=== PATIENT | male | born 1950 | race Hispanic/Latino ===

== ENCOUNTER → 2024-09-02 | Outpatient (CLI) | payer MEDICARE, OTHER ==
[2024-09-02 12:11] LABS: ALBUMIN 3.7 g/dL (3.5-5.0); BILIRUBIN,TOTAL 0.2 mg/dL (0.2-1.0); CREATININE 0.7 mg/dL (0.5-1.3); POTASSIUM 4.3 mmol/L (3.5-5.1); TOTAL PROTEIN, SERUM 7.3 g/dL (6.0-8.3)
== END | disposition home or self-care (01) ==
LOC: LAB 09:05
PROVIDERS: ATTEND Student in an Organized Health Care Education/Training Program
DX: I10 Essential (primary) hypertension (principal)
CPT/HCPCS: 36415; 80053

== ENCOUNTER → 2024-09-09 | Outpatient (CLI) | payer MEDICARE, OTHER ==
[~2024-09-09] MED LIST: IOHEXOL 350 MG/ML 100ML INFUS..BTL IV ONE
--- NOTE | 2024-09-09 12:16 | HMCIMG ---
CT CARDIAC ANGIO W/CONT. CCTA HISTORY: Coronary atherosclerosis COMPARISON: None TECHNIQUE: Multiple sequential axial images of the chest were obtained along with the CT angiogram of the chest study. Patient was given 100 cc of Omnipaque through intravenous route. FINDINGS: There is no evidence of pulmonary nodule or parenchymal disease. No pleural effusion or pericardial effusion is seen. There is no evidence of pneumothorax. There are normal size mediastinal and hilar lymph nodes. Coronary arterial calcifications are seen. The heart is not enlarged. Degenerative changes of the thoracolumbar spine are present. IMPRESSION: 1. No evidence of pulmonary nodule or effusion is seen. Please see CT angiogram report of coronary arteries.
--- NOTE | 2024-09-13 07:56 | CARDIOLOGY ---
RAD REPORT: CORNARY CT ANGIO RADIOLOGY REPORT: CORONARY CT ANGIOGRAPHY DATE: Sep 13, 2024 QUALITY: Excellent CLINICAL HISTORY AND INDICATION: [ Elevated CACs] TECHNIQUE: After obtaining a preliminary welfare centre manager image, contrast imaging performed on an [employer] [id number] scanner. A dedicated, limited window, coronary imaging protocol was used, with single breath-hold, retrospective ECG gating, and automated arrhythmia rejection. 100 cc of low osmolar contrast agent: Omnipaque 350 was delivered via a 18-gauge IV catheter in the right antecubital fossa, using a power injector and followed by 60 cc of normal saline bolus as a chaser. Collimated images were reformatted at 0.5 mm intervals, and sent to an offline independent workstation for interpretation, using 3D anatomic reconstructions: Curved multiplanar reconstructions, maximum intensity projections, and multiplanar imaging. No metoprolol was administered prior to scanning due to low baseline heart rate. 0.8 mg SL nitroglycerin was given. CORONARY ARTERY DESCRIPTIONS: The coronary arteries arise in normal position. Left main coronary artery: Normal caliber vessel that bifurcates into the LAD and LCx. No stenosis. Left anterior descending coronary artery: Normal caliber vessel and gives rise to diagonal and septal branches.There is calcified plaque in the proximal LAD with 70-80% stenosis vs calcium blooming artifact. Left circumflex coronary artery: Normal caliber, nondominant and gives rise to two large OM branches. There is mixed calcified and noncalcified plaque in the proximal LCx with 70-80% stenosis. Right coronary artery: Large, dominant vessel giving rise to the PL and PDA branches. There is calcified plaque in the proximal RCA with 50% stenosis. There is calcified plaque in the mid and distal RCA with 20-30% stenosis. CAD-RADs: 4A, severe stenosis. Recommend left heart catheterization. Thoracic Aorta: Normal diameter. Haylee Newton MD Cardiovascular Disease [facility] HAYLEE NEWTON MD Sep 13, 2024 07:56
== END | disposition home or self-care (01) ==
LOC: RAH 10:47 → EDUNIT# 11:30
PROVIDERS: ATTEND Student in an Organized Health Care Education/Training Program
DX: I25.10 Atherosclerotic heart disease of native coronary artery without angina pectoris (principal); R07.89 Other chest pain; I25.84 Coronary atherosclerosis due to calcified coronary lesion; M47.815 Spondylosis without myelopathy or radiculopathy, thoracolumbar region
CPT/HCPCS: 75574; Q9967

== ENCOUNTER 2024-11-26 05:40 | Day surgery (SDC) | payer MEDICARE, OTHER ==
[2024-11-24 08:33] LABS: BASOPHILS # (AUTO) 0.06 K/uL (0.00-0.20); BASOPHILS % (AUTO) 0.7 % (0.0-5.0); EOSINOPHILS # (AUTO) 0.16 K/uL (0.00-0.70); EOSINOPHILS % (AUTO) 1.9 % (0.0-8.0); HEMATOCRIT 43.1 % (42-54); IMMATURE GRANULOCYTE ABSOLUTE 0.02 K/uL (0-1); LYMPHOCYTES # (AUTO) 2.5 K/uL (1.0-4.8); LYMPHOCYTES % (AUTO) 28.7 % (21.0-51.0); MEAN CORPUSCULAR HEMOGLOBIN 28.3 pg (27.0-33.0); MEAN CORPUSCULAR HGB CONC 32.9 g/dL (32.0-36.0); MONOCYTES # (AUTO) 0.4 K/uL (0.1-1.0); NEUTROPHILS # (AUTO) 5.5 K/uL (1.8-7.7); NEUTROPHILS % (AUTO) 63.5 % (40.0-77.0); PLATELET COUNT (AUTO) 268 K/uL (130-400); RED BLOOD CELL COUNT(AUTO) 5.01 MIL/uL (4.50-6.20); RED CELL DISTRIBUTION WIDTH 13.3 % (11.0-15.5); WHITE BLOOD COUNT (AUTO) 8.6 K/uL (4.8-10.8)
[2024-11-24 08:45] LABS: CREATININE 0.8 mg/dL (0.5-1.3); POTASSIUM 4.1 mmol/L (3.5-5.1)
[2024-11-24 08:48] LABS: INR 0.99 (0.85-1.15); PROTHROMBIN TIME 10.5 SEC (9.6-11.6)
[2024-11-24 08:49] LABS: PARTIAL THROMBOPLASTIN TIME 24.8 SEC (26.3-35.5)
[2024-11-24 08:53] VITALS: BP 129/61; PULSE 70; RESP 18; TEMP 97.8
[2024-11-24 09:06] LABS: APPEARANCE,URINE CLEAR (CLEAR); BILIRUBIN,URINE NEGATIVE (NEGATIVE); COLOR,URINE LIGHT-YELLOW (YELLOW); GLUCOSE, URINE (UA) NEGATIVE (NEGATIVE); KETONES,URINE NEGATIVE (NEGATIVE); LEUKOCYTE ESTERASE ,URINE NEGATIVE Leu/uL (NEGATIVE); NITRATE,URINE NEGATIVE (NEGATIVE); OCCULT BLOOD,URINE NEGATIVE (NEGATIVE); PH,URINE 6.5 (5.0-8.0); PROTEIN,URINE NEGATIVE (NEGATIVE); UROBILINOGEN,URINE 0.2 mg/dL (0.2-1.0)
[2024-11-24 09:10] LABS: B-TYPE NATRIURETIC PEPTIDE 12 pg/mL (0-100)
[2024-11-24 09:12] LABS: ADD UA MICROSCOPIC NO
--- NOTE | 2024-11-24 09:18 | HMCIMG ---
Exam Type: CHEST 1VW Clinical Information: PRE OP Comparison: None Findings: The lungs are clear of infiltrates. The heart is normal in size. The bony and soft tissue structures of the chest are unremarkable. Impression: Clear lungs.
--- NOTE | 2024-11-24 09:56 | EKG ---
[facility] Test Date: 2024-11-24 Test Time: 08:25:31 Pat Name: FARIBA CRAIG Department: [facility] Room: Gender: M [employer]isher: [id number] : 1950 Requested By: NILO CONCEPCION Order Number: [id number] Reading MD: Nitesh Almeida Measurements Intervals [place] Rate: 63 P: 75 PA: 151 QRS: 20 QRSD: 95 T: 26 QT: 421 QTc: 431 Interpretive Statements Sinus rhythm No previous ECG available for comparison Electronically Signed On 11-24-2024 16:18:42 CDT by Nitesh Almeida Please click the below link to view image of tracing.
[~2024-11-26] VITALS: Ht 162.6 cm; Wt 68.0 kg
[2024-11-26] VITALS (13 sets, daily range): BP systolic 95–123; BP diastolic 55–75; PULSE 61–77; RESP 14–18; TEMP 97.4–98
[~2024-11-26 05:40] MED LIST changes: +AMLO-257 PO; +ASPI-1443 PO; +CARV12.511 PO; +CHOL500045 PO; +EZET10TA48 PO; +FLUT16H NASAL; -IOHEXOL 350 MG/ML 100ML INFUS..BTL IV ONE; +METF-446 PO; +MONT-39 PO; +OMEP40CA21 PO; +ROSU10TA72 PO; +VALS1TAB81 PO; +XALA2.5OS OU
[2024-11-26] MEDS: 0.9%NACL 1000ML 1,000 ML IV SCH (06:22)
[2024-11-26] MEDS ORDERED: IOHEXOL 350 MG/ML 100ML INFUS..BTL IV ONE ×2 (07:04→09:15)
[2024-11-26] MEDS ORDERED: HEParin 10,000 UNIT/10ML (1,000 UNIT/ML) VIAL ONE ×2 (07:04→09:15)
[2024-11-26] MEDS ORDERED: LIDOCAINE HCL 400MG/20ML VIAL ONE ×2 (07:04→09:14)
[2024-11-26] MEDS ORDERED: NITROGLYCERIN 50MG VIAL ONE ×2 (07:05→09:15)
[2024-11-26] MEDS ORDERED: HEParin-NS 1,000 UNIT/500 ML 500 ML IV ONE (07:05)
[2024-11-26] MEDS ORDERED: VERAPAMIL HCL 2.5 MG/ML VIAL ONE ×2 (07:10→09:15)
[2024-11-26] MEDS ORDERED: ATROPINE 1MG SYG IVP ONE ×2 (07:13→10:33)
[2024-11-26] MEDS ORDERED: FENTanyl CITRate PF 50 MCG/1 ML 2ML VIAL ONE ×2 (07:19→09:56)
[2024-11-26] MEDS ORDERED: MIDAZOLAM HCL 1 MG/ML 2ML VIAL ONE ×3 (07:19→10:11)
--- NOTE | 2024-11-26 07:56 | NUR ---
Patient stable without complaint. VS wnl with SR evident. Patient brought back from [employer] as an incoming STEMI in transit. Family updated in full appearing understanding and supportive.
[2024-11-26] MEDS ORDERED: HEParin-NS 1,000 UNIT/500 ML 1,000 ML IV ONE (09:15)
[2024-11-26] MEDS ORDERED: ASPIRIN 325MG EC TAB PO ONE (10:27)
[2024-11-26] MEDS ORDERED: cloPIDOgrel 300MG TAB ONE (10:27)
[2024-11-26] MEDS ORDERED: FAMOTIDINE 20MG VIAL IV ONE (10:34)
[2024-11-26] MEDS ORDERED: DiphenhydrAMINE HCL 50 MG/ML VIAL ONE (10:36)
--- NOTE | 2024-11-26 11:19 | PRN ---
PROCEDURE REPORT DATE OF PROCEDURE: November 26, 2024 SUPPLIER DEVELOPMENT MANAGER: [ Maykel blair MD] PROCEDURE PERFORMED: Conscious sedation Ultrasound guided right radial artery access Selective left coronary artery angiogram Selective right coronary artery angiogram Left heart catheterization Status post successful PTCA/PCI of the proximal and mid RCA x2 (3 x 12 mm and 3 x 30 mm Xience WADE) TR band 13 latonya over right radial artery INDICATION: Abnormal coronary CTA DESCRIPTION OF PROCEDURE: After informed consent was obtained, the patient was prepped and draped in the usual sterile fashion. A 6 Israeli arterial sheath was inserted in the right radial artery using ultrasound guidance with first pass wall puncture. The arterial sheath was aspirated and flushed. A 6 Israeli JL 3.5 was then advanced to the ascending aorta over an exchange length J-tip guidewire, was aspirated and flushed, and was used for selective coronary angiograms in multiple obliquities. A JR-4 was advanced in a similar fashion to the ascending aorta over the J-tipped guidewire and was used for selective right coronary angiograms in multiple oblique views with findings as outlined below. The JR-4 catheter advanced into the LV and pressures were obtained with a pull-back across the aortic valve. Following review of all the angiographic images decision was made to intervene on patient's critical proximal mid RCA disease. We exchanged the diagnostic catheters for a six Israeli JR4 guide which was advanced over the wire and similar fashion used to engage the right coronary artery. We provided a total of 7000 units of IV heparin and loading doses of Plavix and following therapeutic ACT we advanced a Prowater into the distal RCA under fluoroscopic guidance. We pre-dilated the prox using a 3 x 20 mm compliant balloon to 14 LATONYA. We then deployed a 3 x 30 mm Xience drug-eluting stent within the proximal RCA to nominal pressures. We noted additional significant mid disease which we direct stented using a 3 x 12 mm Xience WADE to nominal pressures. We post dilated both the stents using a 3 x 12 mm noncompliant balloon to 14 LATONYA in the mid segment and 16 and 18 LATONYA in the proximal segment. We provided intracoronary nitroglycerin and final angiographic images revealed mormon of LUCY three flow with no dissections or perforations. At this time all wires and catheters removed from the body and a A TR band was placed over right radial artery. Patient tolerated procedure well with no postprocedural complication was transferred to lab rep holding in stable condition FLUOROSCOPY TIME: 13.9 min LEFT HEART HEMODYNAMICS: LVEDP 10 mm Hg and no gradient Ao CORONARY ANGIOGRAM: LEFT MAIN: Patent and 0% stenosis. Gives rise to LCx and LAD. LEFT ANTERIOR DESCENDING: Large vessel giving rise to two Diagonal branches. There is 30% calcified prox- mid LAD stenosis just after the first septal artery with LUCY 3 flow. LEFT CIRCUMFLEX: Large and gives rise to two OM branches. Calcified with 20-30% prox and mid stenosis. OMs patent. RIGHT CORONARY ARTERY: Large, dominant vessel giving rise to PDA and PL branches. 80-85% proximal, 60- 70% prox-mid and 80% mid stenosis. PDA and PLB are patent HEMOSTASIS: TR band 12 latonya over right radial artery INTERVENTIONS: Status post successful PTCA/PCI of the proximal and mid RCA x2 (3 x 12 mm and 3 x 30 mm Xience WADE) COMPLICATIONS: None FINDINGS: Normal coronary anatomy and severe RCA disease ESTIMATED BLOOD LOSS: 5 cc RECOMMENDATIONS/INSTRUCTIONS: Aggressive risk factor modification. Patient require DAPT (aspirin 81 mg q.day/Plavix 75 mg daily) for a total of six months in addition to high-intensity statin therapy Postprocedure while patient was connected to telemetry he was noted to be in irregular rhythm suggestive of AFib We will plan for outpatient event monitor further elucidate possible atrial fibrillation Radial precautions and follow up with Dr. Rosales blair in 1-2 weeks post discharge CONTRAST DELIVERED TO PATIENT (mL): 125cc MD CARLENE Soni JAMES R MD November 26, 2024 11:19
[2024-11-26] MEDS ORDERED: GLUCAGON 1MG KIT 1 MG ML IM PRN (11:30)
[2024-11-26] MEDS ORDERED: 0.9%NACL 1000ML 1,000 ML IV SCH (11:30)
[2024-11-26] MEDS ORDERED: DEXTROSE 50%-WATER 50 ML DISP.SYRIN IV PRN (11:30)
--- NOTE | 2024-11-26 13:16 | NUR ---
Received back from [employer]om[employer] appearing sleepy. Arousable to voice. TR band intact with evidence of bleeding, bruising or hematoma. Instructed Patient and Family of TR Band protocol of removal. Patient now in A Fib. Called Dr Newton to get order for EKG. EKG posted in chart and reviewed by Dr Marisol Newton. He spoke at length with and Daughter regarding new heart rhythm. All questions answer TR band now with 8 mls of air. Reported off in full to Yady MAYBERRY
--- NOTE | 2024-11-26 13:30 | EKG ---
[facility] Test Date: 2024-11-26 Test Time: 12:56:56 Pat Name: FARIBA CRAIG Department: [facility] Room: [facility] Gender: M Work Manager: [phone] : 1950 Requested By: NILO NEWTON Order Number: [id number] Reading MD: Haylee Newton Measurements Intervals [place] Rate: 53 P: 0 ME: 0 QRS: 14 QRSD: 93 T: 23 QT: 452 QTc: 426 Interpretive Statements Atrial fibrillation Compared to ECG 11/24/2024 08:25:31 Sinus rhythm no longer present Electronically Signed On 11-27-2024 18:39:28 CDT by Haylee Newton Please click the below link to view image of tracing.
[2024-11-27] MEDS ORDERED: cloPIDOgrel 75MG TAB PO SCH (09:00)
[2024-11-27] MEDS ORDERED: ASPIRIN 81MG CHEW TAB PO SCH (09:00)
== END 2024-11-26 16:27 | disposition home or self-care (01) ==
LOC: DAH 05:40
PROVIDERS: ATTEND Student in an Organized Health Care Education/Training Program
DX: R93.1 Abnormal findings on diagnostic imaging of heart and coronary circulation (principal); I25.10 Atherosclerotic heart disease of native coronary artery without angina pectoris; I25.84 Coronary atherosclerosis due to calcified coronary lesion; I10 Essential (primary) hypertension; E11.9 Type 2 diabetes mellitus without complications; I48.91 Unspecified atrial fibrillation; E78.5 Hyperlipidemia, unspecified; Z79.899 Other long term (current) drug therapy; Z79.82 Long term (current) use of aspirin; Z79.84 Long term (current) use of oral hypoglycemic drugs; Z98.890 Other specified postprocedural states; Z82.3 Family history of stroke; Z83.3 Family history of diabetes mellitus; Z80.8 Family history of malignant neoplasm of other organs or systems
CPT/HCPCS: 80048; 83880; 85025; 85610; 85730; 81003; 36415; 71045; 93005 ×2; 93458; 85347; 82948 ×2; C9600; Q9965 ×2; C1769 ×3; C1887; C1725; C1874 ×2; C1894; J1200; J3490 ×7; J3010 ×2; J1644 ×3; J2250 ×3; Q9967; A4215; A4222; A4221; A4663; A4216; A4606; A4223 ×3; 99156; 99157; J0461